=== PATIENT | female | born 1990 | race Two or more races ===

== ENCOUNTER 2018-07-29 14:30 | Emergency (ER) | END 2018-07-29 20:40 | disposition home or self-care (01) ==

== ENCOUNTER 2018-07-31 15:45 | Emergency (ER) | END 2018-07-31 17:55 | disposition home or self-care (01) ==

== ENCOUNTER 2018-08-05 12:33 | Emergency (ER) | END 2018-08-05 15:09 | disposition home or self-care (01) ==

== ENCOUNTER 2018-12-21 17:50 | Emergency (ER) | payer BC ==
[~2018-12-21] VITALS: Ht 157.5 cm; Wt 74.4 kg
[~2018-12-21 17:50] MED LIST: DOXY100T20 PO; IBUP800T48 PO
[2018-12-21 18:17] VITALS: Ht 157.5 cm; Wt 74.4 kg
[2018-12-21] MEDS ORDERED: IBUP-1561 PO (21:25)
[2018-12-21] MEDS ORDERED: FAMO-96 PO (21:25)
[2018-12-21] MEDS ORDERED: ACET325T33 PO (21:25)
--- NOTE | 2018-12-21 22:50 | ERD ---
ER Documentation Chief Complaint Chief Complaint L-SIDED ABD AND BACK PAIN X 10 DAYS; DENIES NVD OR FEVER HPI 28-year-old female presenting with abdominal pain and back pain times 10 days. She denies any nausea vomiting or fever. She has not taken medications for symptoms. She states that she has some dysuria but no hematuria. No changes in bowel movement. LNMP November 18. Denies any vaginal bleeding. Denies medical problems. NKDA. Surgical history denies. Social history denies ROS All systems reviewed and are negative except as per history of present illness. Medications Home Meds Active Scripts Famotidine* (Pepcid*) 20 Mg Tablet, 20 MG PO BID for 4 Days, #30 TAB Prov:JARRETT POLLOCK PA-C 12/21/18 Acetaminophen* (Tylenol*) 325 Mg Tablet, 1 TAB PO Q6 PRN for PAIN AND OR ELEVATED TEMP, #20 TAB Prov:JARRETT POLLOCK PA-C 12/21/18 Ibuprofen* (Motrin*) 400 Mg Tab, 400 MG PO Q6, #30 TAB Prov:JARRETT POLLOCK PA-C 12/21/18 Ibuprofen* (Motrin*) 800 Mg Tab, 800 MG PO Q8H PRN for PAIN AND OR ELEVATED TEMP, #30 TAB Prov:FRANKO VIRK PA-C 07/29/18 Doxycycline Hyclate* (Doxycycline Hyclate*) 100 Mg Tablet.dr, 100 MG PO BID for 3 Days, TAB Prov:FRANKO VIRK PA-C 07/29/18 Allergies Allergies: Coded Allergies: No Known Allergy (Unverified , 12/21/18) PMhx/Soc Medical and Surgical Hx: pt denies Medical Hx, pt denies Surgical Hx Hx Alcohol Use: No Hx Substance Use: No Hx Tobacco Use: No Smoking Status: Never smoker FmHx Family History: No diabetes, No coronary disease, No other Physical Exam Vitals Vital Signs Date Temp Pulse Resp B/P (MAP) Pulse Ox O2 O2 Flow FiO2 Time Delivery Rate 12/21/18 99.0 95 16 135/80 100 18:17 (98) Physical Exam GENERAL: The patient is well-appearing, well-nourished, in no acute distress CHEST: Clear to auscultation bilaterally. There are no rales, wheezes or rhonchi. HEART: Regular rate and rhythm. No murmurs, clicks, rubs or gallops. No S3 or S4. ABDOMEN: Normal active bowel sounds. No distention. No organomegaly. Generalized tenderness to palpation with no focal exam. Result Diagram: 12/21/18200012/21/182008 Results 24 hrs Laboratory Tests Test 12/21/18 20:01 12/21/18 20:07 12/21/18 20:09 12/21/18 20:14 White Blood Count 7.6 10^3/ul Red Blood Count 4.38 10^6/ul Hemoglobin 12.8 g/dl Hematocrit 38.0 % Mean Corpuscular 86.8 fl Volume Mean Corpuscular 29.2 pg Hemoglobin Mean Corpuscular 33.7 g/dl Hemoglobin Concen t Red Cell 12.2 % Distribution Width Platelet Count 196 10^3/UL Mean Platelet 12.1 fl Volume Immature 0.100 % Granulocytes % Neutrophils % 48.6 % Lymphocytes % 38.9 % Monocytes % 7.2 % Eosinophils % 5.1 % Basophils % 0.1 % Nucleated Red 0.0 /100WBC Blood Cells % Immature 0.010 10^3/ul Granulocytes # Neutrophils # 3.7 10^3/ul Lymphocytes # 3.0 10^3/ul Monocytes # 0.6 10^3/ul Eosinophils # 0.4 10^3/ul Basophils # 0.0 10^3/ul Nucleated Red 0.0 10^3/ul Blood Cells # Urine Color YELLOW Urine Clarity SLIGHTLY CLOUDY Urine pH 6.0 Urine Specific 1.018 [place] Urine Ketones NEGATIVE mg/dL Urine Nitrite NEGATIVE mg/dL Urine Bilirubin NEGATIVE mg/dL Urine NEGATIVE mg/dL Urobilinogen Urine Leukocyte 1+ Kylie/ul Esterase Urine Microscopic 1 /HPF RBC Urine Microscopic 3 /HPF WBC Urine Squamous FEW /HPF Epithelial Cells Urine Hemoglobin NEGATIVE mg/dL Urine Glucose NEGATIVE mg/dL Urine Total NEGATIVE mg/dl Protein Sodium Level 139 mmol/L Potassium Level 4.1 mmol/L Chloride Level 106 mmol/L Carbon Dioxide 22 mmol/L Level Anion Gap 11 Blood Urea 11 mg/dl Nitrogen Creatinine 0.59 mg/dl Est Glomerular > 60 mL/min Filtrat Rate mL/min Glucose Level 128 mg/dl Calcium Level 9.3 mg/dl Total Bilirubin 0.0 mg/dl Direct Bilirubin 0.00 mg/dl Indirect 0.0 mg/dl Bilirubin Aspartate Amino 22 IU/L Transf (AST/SGOT) Alanine 35 IU/L Aminotransferase (ALT/SGPT) Alkaline 87 IU/L Phosphatase Total Protein 7.7 g/dl Albumin 4.4 g/dl Globulin 3.30 g/dl Albumin/Globulin 1.33 Ratio Lipase 106 U/L POC Beta HCG, NEGATIVE Qualitative Procedures/MDM DIAGNOSTIC IMAGING REPORT Patient: BRANDI NEWELL : 1990 Age: 28 Sex: F MR #: [id number] DOS: 12/21/18 1950 Ordering MD: MAREK POLLOCK PA-C Location: [facility] Room/Bed: PROCEDURE: CT abdomen and pelvis without contrast. CLINICAL INDICATION: Abdominal Pain TECHNIQUE: CT scan of the abdomen and pelvis without contrast was performed and is reconstructed at 2.5 mm contiguous axial intervals from the dome of the diaphragm to the inferior pubic rami.. The patient was scanned without intravenous contrast. Sagittal and coronal reformatted images were obtained from the axial source images. The calculated radiation dose measures 617 mGy centimeters. The CTDI measures 10.2 mGy. Individualized dose optimization technique was used for the performance of this exam. This included 1. Automated exposure control. 2. Adjustment of the mA and / or kV according to the patient's size. 3. Use of iterative reconstructed technique. COMPARISON: None. FINDINGS: The lung bases are clear of any infiltrate or nodule. No effusion is seen. The liver is of normal size, contour and attenuation with no mass or ductal dilatation. No gallstones are visualized. No splenic, adrenal or pancreatic abnormalities present. Kidneys are of normal size and contour. No hydronephrosis, calculus or masses seen. Ureters are of normal course and caliber with no stone. No bladder mass or stone is present. Uterus appears normal. No adnexal mass is present. There is no aneurysm. No adenopathy is present. No bowel mass or obstruction is present. The appendix is normal. No phlegmon or pneumoperitoneum is visualized. There is trace pelvic ascites. The osseous structures are intact. IMPRESSION: No evidence of urolithiasis, obstructive uropathy, diverticulitis or appendicitis. MDM: 28-year-old female presenting with abdominal pain. I have low suspicion for ectopic or pelvic abnormality. Exam is non-concerning and urine is negative. I have low suspicion for acute abdominal emergency. CT scan is within normal limits. I have low suspicion for urinary tract infection or pyelonephritis as patient's urinalysis is within normal limits and I do not find reason to give antibiotics. Patient is discharged with supportive medications and told to follow-up with primary care within 1-2 days for close evaluation. Patient is told if symptoms change or worsen to immediately return to the ER. All questions answered at discharge Departure Diagnosis: Primary Impression: Abdominal pain Condition: Stable Patient Instructions: Abdominal Pain Referrals: [facility] YOU HAVE RECEIVED A MEDICAL SCREENING EXAM AND THE RESULTS INDICATE THAT YOU DO NOT HAVE A CONDITION THAT REQUIRES URGENT TREATMENT IN THE EMERGENCY DEPARTMENT. FURTHER EVALUATION AND TREATMENT OF YOUR CONDITION CAN WAIT UNTIL YOU ARE SEEN IN YOUR DOCTORS OFFICE WITHIN THE NEXT 1-2 DAYS. IT IS YOUR RESPONSIBILITY TO MAKE AN APPOINTMENT FOR FOLOW-UP CARE. IF YOU HAVE A PRIMARY DOCTOR --you should call your primary doctor and schedule an appointment IF YOU DO NOT HAVE A PRIMARY DOCTOR YOU CAN CALL OUR PHYSICIAN REFERRAL HOTLINE AT IF YOU CAN NOT AFFORD TO SEE A PHYSICIAN YOU CAN CHOSE FROM THE FOLLOWING [facility] [address] [facility]. [facility] [address] [facility] [place] [facility] [address] [facility] [facility] [address] [facility] [facility] [facility] [address] [facility]. [facility]. [address] Additional Instructions: FOLLOW UP WITH YOUR PRIMARY CARE PHYSICIAN TOMORROW.Return to this facility if you are not improving as expected. JARRETT POLLOCK PA-C Dec 21, 2018 22:50
== END 2018-12-21 21:35 | disposition home or self-care (01) ==
LOC: FTE 17:50
DX: R10.9 Unspecified abdominal pain (principal)
CPT/HCPCS: 36415; 74176; 80053; 81001; 81025; 83690; 85025; Z7502